=== PATIENT | male | born 1955 | race Caucasian/White ===

== ENCOUNTER 2020-12-19 05:06 | Inpatient (IN) | payer BC ==
[2020-12-19 05:47] VITALS: BMI 26.2
[2020-12-19] MEDS ORDERED: Ondansetron PF 4 MG/2 ML Vial IVP PRN (05:57)
[2020-12-19] MEDS ORDERED: Ondansetron ODT 4 MG TAB PO PRN (05:57)
[2020-12-19] MEDS ORDERED: Acetaminophen 325 MG TAB PO PRN (05:57)
[2020-12-19] MEDS ORDERED: Dextrose 5% in Water 1,000 ML IV PRN (06:11)
[2020-12-19] MEDS ORDERED: Dextrose 50% Abboject 50 ML SYRINGE SLOW IVP PRN (06:11)
[2020-12-19] MEDS ORDERED: Meclizine HCl 12.5 MG TAB PO PRN (06:32)
[2020-12-19] MEDS: Lactated Ringer's 1,000 ML IV SCH ×3 (06:34→22:33)
[2020-12-19] MEDS: HumaLOG 300 UNITS/3 ML VIAL SC PRN ×3 (06:34→16:29)
[2020-12-19] MEDS ORDERED: REMDESIVIR 200 MG in Sodium Chloride 0.9% 250 ML 210 ML IV SCH (08:00)
[2020-12-19] MEDS: Atorvastatin Calcium 40 MG TAB PO SCH (08:30)
[2020-12-19] MEDS: Dexamethasone 4 MG TAB PO SCH (08:31)
[2020-12-19] MEDS: Clopidogrel Bisulfate 75 MG TAB PO SCH (08:31)
[2020-12-19] MEDS: glyBURIDE 5 MG TAB PO SCH (08:31)
[2020-12-19] MEDS: Lisinopril 2.5 MG TAB PO SCH (08:31)
[2020-12-19] MEDS: Ezetimibe 10 MG TAB PO SCH (08:31)
[2020-12-19] MEDS: metFORMIN 500 MG TAB PO SCH ×2 (08:31→21:03)
[2020-12-19] MEDS: Enoxaparin Sodium 40 MG/0.4 ML SYRINGE SC SCH (08:31)
[2020-12-19 09:54] LABS: PTT 33.7 sec (22.9-36.1); Prothrombin Time 12.6 sec (12.0-14.7)
[2020-12-19] MEDS: Lantus 1000 UNITS/10 ML VIAL SC SCH ×2 (21:40→22:05)
[2020-12-20] MEDS: Levothyroxine Sodium 100 MCG TAB PO SCH (06:01)
[2020-12-20 06:02] LABS: Band 1 % (5-11); Hemoglobin 15.2 g/dL (14.0-18.0); Lymphocytes 29 % (21-51); MDiff Complete? YES; Mean Corpuscular HGB CONC 33.4 g/dL (32.0-36.0); Mean Corpuscular Hemoglobin 30.9 pg (27.0-31.0); Mean Corpuscular Volume 92.5 fL (78.0-98.0); Mean Platelet Volume 8.4 fL (7.4-10.4); Monocytes 8 % (0-10); Neutrophil 62 % (42-75); Platelet Count 149 thou/uL (130-400); Platelet Morphology Comment Appears Adequate; RBC Distribution Width 12.4 % (11.5-14.5); Red Blood Cell (RBC) Count 4.93 mill/uL (4.70-6.10); White Blood Cell (WBC) Count 6.9 thou/uL (4.8-10.8)
[2020-12-20 06:03] LABS: ALT (SGPT) 38 U/L (8-55); AST (SGOT) 46 U/L (5-34); Albumin 3.1 g/dL (3.4-4.8); Alkaline Phosphatase 62 U/L (40-110); Anion Gap 11 mmol/L (10-20); BUN (Urea Nitrogen) 24 mg/dL (8.4-25.7); Bilirubin, Total 0.8 mg/dL (0.2-1.2); Calc. Creatinine Clearance 104 mL/min (70-130); Calcium 8.1 mg/dL (7.8-10.44); Carbon Dioxide 25 mmol/L (23-31); Chloride 105 mmol/L (98-107); Globulin 2.9 g/dL (2.4-3.5); Glucose 128 mg/dL (80-115); Potassium 4.2 mmol/L (3.5-5.1); Sodium 137 mmol/L (136-145)
[2020-12-20] MEDS: Lactated Ringer's 1,000 ML IV SCH (06:13)
[2020-12-20] MEDS: Clopidogrel Bisulfate 75 MG TAB PO SCH (08:04)
[2020-12-20] MEDS: Dexamethasone 4 MG TAB PO SCH (08:04)
[2020-12-20] MEDS: metFORMIN 500 MG TAB PO SCH ×2 (08:04→21:32)
[2020-12-20] MEDS: glyBURIDE 5 MG TAB PO SCH (08:04)
[2020-12-20] MEDS: Atorvastatin Calcium 40 MG TAB PO SCH (08:04)
[2020-12-20] MEDS: Lisinopril 2.5 MG TAB PO SCH (08:05)
[2020-12-20] MEDS: Ezetimibe 10 MG TAB PO SCH (08:05)
[2020-12-20] MEDS: Enoxaparin Sodium 40 MG/0.4 ML SYRINGE SC SCH (08:08)
[2020-12-20] MEDS: REMDESIVIR 100 MG in Sodium Chloride 0.9% 250 ML 230 ML IV SCH (08:39)
[2020-12-20] MEDS: HumaLOG 300 UNITS/3 ML VIAL SC PRN (17:00)
[2020-12-20] MEDS: Lantus 1000 UNITS/10 ML VIAL SC SCH (21:31)
[2020-12-21] MEDS: Levothyroxine Sodium 100 MCG TAB PO SCH (05:29)
[2020-12-21 05:55] LABS: #Lymphocytes 1.7 thou/uL (1.20-3.40); #Monocytes 1.1 thou/uL (0.11-0.59); #Neutrophils 5.8 thou/uL (1.40-6.50); %Eosinophils 0.3 % (0.0-10.0); %Lymphocytes 19.4 % (21.0-51.0); %Monocytes 12.5 % (0.0-10.0); %Neutrophils 67.8 % (42.0-75.0); Hemoglobin 15.1 g/dL (14.0-18.0); Mean Corpuscular HGB CONC 32.7 g/dL (32.0-36.0); Mean Corpuscular Hemoglobin 30.1 pg (27.0-31.0); Mean Corpuscular Volume 92.1 fL (78.0-98.0); Mean Platelet Volume 8.2 fL (7.4-10.4); Platelet Count 180 thou/uL (130-400); RBC Distribution Width 12.3 % (11.5-14.5); Red Blood Cell (RBC) Count 5.02 mill/uL (4.70-6.10); White Blood Cell (WBC) Count 8.6 thou/uL (4.8-10.8)
[2020-12-21 06:18] LABS: ALT (SGPT) 40 U/L (8-55); AST (SGOT) 47 U/L (5-34); Alkaline Phosphatase 61 U/L (40-110); Anion Gap 12 mmol/L (10-20); BUN (Urea Nitrogen) 25 mg/dL (8.4-25.7); Bilirubin, Total 0.9 mg/dL (0.2-1.2); Calc. Creatinine Clearance 110 mL/min (70-130); Calcium 8.4 mg/dL (7.8-10.44); Carbon Dioxide 25 mmol/L (23-31); Chloride 107 mmol/L (98-107); Globulin 3.1 g/dL (2.4-3.5); Glucose 83 mg/dL (80-115); Potassium 5.3 mmol/L (3.5-5.1); Protein, Total 6.1 g/dL (5.8-8.1); Sodium 139 mmol/L (136-145)
[2020-12-21] MEDS: Lisinopril 2.5 MG TAB PO SCH (07:57)
[2020-12-21] MEDS: Dexamethasone 4 MG TAB PO SCH (07:57)
[2020-12-21] MEDS: metFORMIN 500 MG TAB PO SCH ×2 (07:58→20:18)
[2020-12-21] MEDS: Atorvastatin Calcium 40 MG TAB PO SCH (07:58)
[2020-12-21] MEDS: glyBURIDE 5 MG TAB PO SCH (07:58)
[2020-12-21] MEDS: Clopidogrel Bisulfate 75 MG TAB PO SCH (07:58)
[2020-12-21] MEDS: Ezetimibe 10 MG TAB PO SCH (07:58)
[2020-12-21] MEDS: Enoxaparin Sodium 40 MG/0.4 ML SYRINGE SC SCH (07:59)
[2020-12-21] MEDS: REMDESIVIR 100 MG in Sodium Chloride 0.9% 250 ML 230 ML IV SCH (08:59)
[2020-12-21] MEDS ORDERED: Benzonatate 100 MG CAP PO SCH (09:00)
[2020-12-21] MEDS: guaiFENesin/DM ER PO SCH ×2 (10:00→20:18)
[2020-12-21 15:28] LABS: Potassium 4.2 mmol/L (3.5-5.1)
[2020-12-21] MEDS: HumaLOG 300 UNITS/3 ML VIAL SC PRN (16:33)
[2020-12-21] MEDS: Lantus 1000 UNITS/10 ML VIAL SC SCH (20:21)
[2020-12-22] MEDS: Levothyroxine Sodium 100 MCG TAB PO SCH (05:15)
[2020-12-22 07:07] LABS: ALT (SGPT) 43 U/L (8-55); AST (SGOT) 50 U/L (5-34); Albumin 3.1 g/dL (3.4-4.8); Alkaline Phosphatase 67 U/L (40-110); Anion Gap 9 mmol/L (10-20); BUN (Urea Nitrogen) 22 mg/dL (8.4-25.7); Bilirubin, Total 1.1 mg/dL (0.2-1.2); Calc. Creatinine Clearance 119 mL/min (70-130); Calcium 8.2 mg/dL (7.8-10.44); Carbon Dioxide 27 mmol/L (23-31); Chloride 105 mmol/L (98-107); Globulin 3.2 g/dL (2.4-3.5); Glucose 78 mg/dL (80-115); Potassium 4.3 mmol/L (3.5-5.1); Protein, Total 6.3 g/dL (5.8-8.1); Sodium 137 mmol/L (136-145)
[2020-12-22 07:08] LABS: #Lymphocytes 1.4 thou/uL (1.20-3.40); %Basophils 0.1 % (0.0-1.0); %Eosinophils 0.2 % (0.0-10.0); %Lymphocytes 15.1 % (21.0-51.0); %Neutrophils 74.5 % (42.0-75.0); Hemoglobin 15.8 g/dL (14.0-18.0); Mean Corpuscular HGB CONC 34.4 g/dL (32.0-36.0); Mean Platelet Volume 7.8 fL (7.4-10.4); Platelet Count 177 thou/uL (130-400); RBC Distribution Width 12.4 % (11.5-14.5); Red Blood Cell (RBC) Count 4.95 mill/uL (4.70-6.10); White Blood Cell (WBC) Count 9.4 thou/uL (4.8-10.8)
[2020-12-22] MEDS: Lisinopril 2.5 MG TAB PO SCH (08:13)
[2020-12-22] MEDS: Atorvastatin Calcium 40 MG TAB PO SCH (08:13)
[2020-12-22] MEDS: Ezetimibe 10 MG TAB PO SCH (08:13)
[2020-12-22] MEDS: Dexamethasone 4 MG TAB PO SCH (08:14)
[2020-12-22] MEDS: Clopidogrel Bisulfate 75 MG TAB PO SCH (08:14)
[2020-12-22] MEDS: glyBURIDE 5 MG TAB PO SCH (08:14)
[2020-12-22] MEDS: metFORMIN 500 MG TAB PO SCH ×2 (08:14→21:13)
[2020-12-22] MEDS: guaiFENesin/DM ER PO SCH ×2 (08:15→21:13)
[2020-12-22] MEDS: Enoxaparin Sodium 40 MG/0.4 ML SYRINGE SC SCH (08:15)
[2020-12-22] MEDS: REMDESIVIR 100 MG in Sodium Chloride 0.9% 250 ML 230 ML IV SCH (08:18)
[2020-12-22] MEDS ORDERED: Bisacodyl 5 MG TAB PO PRN (08:29)
[2020-12-22] MEDS ORDERED: Senokot S 8.6-50 MG TAB PO SCH (09:00)
[2020-12-22] MEDS ORDERED: Polyethylene Glycol 3350 17 GM Packet PO SCH (09:00)
[2020-12-22] MEDS: Lantus 1000 UNITS/10 ML VIAL SC SCH (21:12)
[2020-12-23] MEDS: Levothyroxine Sodium 100 MCG TAB PO SCH (05:27)
[2020-12-23 06:58] LABS: #Basophils 0.1 thou/uL (0.0-0.2); #Eosinphils 0.1 thou/uL (0.0-0.7); #Lymphocytes 1.3 thou/uL (1.20-3.40); #Monocytes 0.9 thou/uL (0.11-0.59); #Neutrophils 6.1 thou/uL (1.40-6.50); %Basophils 0.9 % (0.0-1.0); %Eosinophils 0.6 % (0.0-10.0); %Lymphocytes 15.4 % (21.0-51.0); %Monocytes 11.1 % (0.0-10.0); %Neutrophils 72.1 % (42.0-75.0); Hemoglobin 15.8 g/dL (14.0-18.0); Mean Corpuscular Hemoglobin 30.5 pg (27.0-31.0); Mean Corpuscular Volume 92.4 fL (78.0-98.0); Mean Platelet Volume 7.6 fL (7.4-10.4); Platelet Count 212 thou/uL (130-400); RBC Distribution Width 12.3 % (11.5-14.5); Red Blood Cell (RBC) Count 5.19 mill/uL (4.70-6.10); White Blood Cell (WBC) Count 8.5 thou/uL (4.8-10.8)
[2020-12-23 07:19] LABS: ALT (SGPT) 41 U/L (8-55); AST (SGOT) 48 U/L (5-34); Albumin 3.1 g/dL (3.4-4.8); Alkaline Phosphatase 77 U/L (40-110); Anion Gap 10 mmol/L (10-20); BUN (Urea Nitrogen) 15 mg/dL (8.4-25.7); Bilirubin, Total 1.4 mg/dL (0.2-1.2); Calc. Creatinine Clearance 117 mL/min (70-130); Calcium 8.2 mg/dL (7.8-10.44); Carbon Dioxide 27 mmol/L (23-31); Chloride 103 mmol/L (98-107); Globulin 3.2 g/dL (2.4-3.5); Glucose 90 mg/dL (80-115); Potassium 4.1 mmol/L (3.5-5.1); Protein, Total 6.3 g/dL (5.8-8.1); Sodium 136 mmol/L (136-145)
[2020-12-23 07:45] VITALS: BP 143/80; TEMP 97.6
[2020-12-23] MEDS ORDERED: Aspirin 81 mg Enteric Coated Tablet PO SCH (09:00)
[2020-12-23] MEDS: REMDESIVIR 100 MG in Sodium Chloride 0.9% 250 ML 230 ML IV SCH (09:07)
[2020-12-23] MEDS: metFORMIN 500 MG TAB PO SCH (09:08)
[2020-12-23] MEDS: Atorvastatin Calcium 40 MG TAB PO SCH (09:08)
[2020-12-23] MEDS: Clopidogrel Bisulfate 75 MG TAB PO SCH (09:08)
[2020-12-23] MEDS: Enoxaparin Sodium 40 MG/0.4 ML SYRINGE SC SCH (09:08)
[2020-12-23] MEDS: Lisinopril 2.5 MG TAB PO SCH (09:08)
[2020-12-23] MEDS: Ezetimibe 10 MG TAB PO SCH (09:08)
[2020-12-23] MEDS: Dexamethasone 4 MG TAB PO SCH (09:09)
[2020-12-23] MEDS: guaiFENesin/DM ER PO SCH (09:09)
[2020-12-23] MEDS: glyBURIDE 5 MG TAB PO SCH (09:09)
[2020-12-23] MEDS: HumaLOG 300 UNITS/3 ML VIAL SC PRN (11:43)
== END 2020-12-23 16:22 | disposition home or self-care (01) | DRG 177 ==
LOC: T4-B 05:42 → OBSVTOIN 15:38
PROVIDERS: ADMIT Student in an Organized Health Care Education/Training Program; ATTEND Student in an Organized Health Care Education/Training Program
PROC: 8E0ZXY6 Isolation (ICD-10-PCS; principal; 2020-12-19)
PROC: XW033E5 Introduction of Remdesivir Anti-infective into Peripheral Vein, Percutaneous Approach, New Technology Group 5 (ICD-10-PCS; 2020-12-19)
DX: U07.1 COVID-19 (principal); J96.01 Acute respiratory failure with hypoxia; J12.82 Pneumonia due to coronavirus disease 2019; E03.9 Hypothyroidism, unspecified; E78.5 Hyperlipidemia, unspecified; I25.10 Atherosclerotic heart disease of native coronary artery without angina pectoris; E11.65 Type 2 diabetes mellitus with hyperglycemia; I10 Essential (primary) hypertension; E87.5 Hyperkalemia; Z79.4 Long term (current) use of insulin; Z79.899 Other long term (current) drug therapy; Z79.890 Hormone replacement therapy; Z95.5 Presence of coronary angioplasty implant and graft; Z90.49 Acquired absence of other specified parts of digestive tract; Z82.49 Family history of ischemic heart disease and other diseases of the circulatory system; Z85.038 Personal history of other malignant neoplasm of large intestine
CPT/HCPCS: 36415; 36416; 71045; 80053; 83880; 84145; 85025; 85610; 85730; 86140; 93005; 93010; 96365; 96372; G0378; J1650; J1815; J2405; J7050; J8540

== ENCOUNTER 2021-01-15 17:49 | Inpatient (IN) | payer BC ==
[~2021-01-15 17:49] MED LIST: Iopamidol-370 76% 500 ML 1 ML ONE
[2021-01-15 18:39] LABS: #Basophils 0.1 thou/uL (0.0-0.2); #Eosinphils 0.2 thou/uL (0.0-0.7); #Lymphocytes 4.1 thou/uL (1.20-3.40); #Monocytes 1.4 thou/uL (0.11-0.59); #Neutrophils 7.6 thou/uL (1.40-6.50); %Basophils 0.9 % (0.0-1.0); %Eosinophils 1.8 % (0.0-10.0); %Lymphocytes 30.9 % (21.0-51.0); %Monocytes 10.2 % (0.0-10.0); %Neutrophils 56.3 % (42.0-75.0); Hemoglobin 15.6 g/dL (14.0-18.0); Mean Corpuscular HGB CONC 34.7 g/dL (32.0-36.0); Mean Corpuscular Hemoglobin 31.8 pg (27.0-31.0); Mean Corpuscular Volume 91.8 fL (78.0-98.0); Mean Platelet Volume 7.4 fL (7.4-10.4); Platelet Count 259 thou/uL (130-400); RBC Distribution Width 12.6 % (11.5-14.5); Red Blood Cell (RBC) Count 4.91 mill/uL (4.70-6.10); White Blood Cell (WBC) Count 13.4 thou/uL (4.8-10.8)
[2021-01-15 19:04] LABS: ALT (SGPT) 56 U/L (8-55); AST (SGOT) 28 U/L (5-34); Alkaline Phosphatase 87 U/L (40-110); Anion Gap 17 mmol/L (10-20); BUN (Urea Nitrogen) 19 mg/dL (8.4-25.7); Bilirubin, Total 1.5 mg/dL (0.2-1.2); Calc. Creatinine Clearance 0 mL/min (70-130); Calcium 10.1 mg/dL (7.8-10.44); Carbon Dioxide 25 mmol/L (23-31); Chloride 104 mmol/L (98-107); Globulin 3.3 g/dL (2.4-3.5); Glucose 190 mg/dL (80-115); Lipase 75 U/L (8-78); Potassium 4.6 mmol/L (3.5-5.1); Protein, Total 7.3 g/dL (5.8-8.1); Sodium 141 mmol/L (136-145)
[2021-01-15] MEDS ORDERED: Cefepime 2 GM VIAL ONE (19:53)
[2021-01-15] MEDS ORDERED: Vancomycin 1.5 GRAM/300 ML BAG 1.5 GM in Premix Bag 1 BAG IVPB SCH (20:45)
[2021-01-15 22:27] LABS: Bilirubin Negative (Negative); Blood, Urine Negative (Negative); Clarity Clear (Clear); Glucose, Urine (Dipstick) 500 mg/dL (Negative); Ketone, Urine Negative (Negative); Leukocyte 75 Leu/uL (Negative); Mucous/LPF Rare LPF (<2+); Nitrite Negative (Negative); Protein, Urine (Dipstick) 30 mg/dL (Neg-Trace); Squamous Epithelial 0-3 HPF (0-3); Urobilinogen Normal mg/dL (Less than 2); WBC/HPF 21-50 HPF (0-3)
[2021-01-15 22:35] LABS: RBC/HPF 0-3 HPF (0-3); Specific Gravity, Urine 1.056 (1.002-1.036)
[2021-01-15 22:36] LABS: Bacteria/HPF None Seen HPF (None Seen); Calcium Oxalate Crystals 1+ HPF (None Seen)
[2021-01-15 23:04] LABS: Lactic Acid 2.1 mmol/L (0.5-2.2)
[2021-01-15] MEDS ORDERED: Benzonatate 100 MG CAP PO PRN (23:32)
[2021-01-15] MEDS ORDERED: Meclizine HCl 12.5 MG TAB PO PRN (23:39)
[2021-01-15] MEDS ORDERED: Dextrose 5% in Water 1,000 ML IV PRN (23:40)
[2021-01-15] MEDS ORDERED: Dextrose 50% Abboject 50 ML SYRINGE SLOW IVP PRN (23:40)
[2021-01-15] MEDS ORDERED: HumaLOG 300 UNITS/3 ML VIAL SC PRN ×2 (23:40)
[2021-01-15 23:42] LABS: Troponin I Less than 0.010 ng/mL (< 0.028)
[2021-01-15] MEDS ORDERED: Lactated Ringer's 1,000 ML IV SCH (23:45)
[2021-01-16 01:50] LABS: Troponin I Less than 0.010 ng/mL (< 0.028)
[2021-01-16 02:21] VITALS: BMI 25.8
[2021-01-16] MEDS ORDERED: Cefepime 2 GM in Sodium Chloride 0.9% 100 ML IVPB SCH (04:00)
[2021-01-16 05:12] LABS: #Eosinphils 0.3 thou/uL (0.0-0.7); #Monocytes 1.1 thou/uL (0.11-0.59); %Basophils 0.4 % (0.0-1.0); %Lymphocytes 28.6 % (21.0-51.0); %Monocytes 10.3 % (0.0-10.0); %Neutrophils 57.7 % (42.0-75.0); Hemoglobin 12.5 g/dL (14.0-18.0); Mean Corpuscular HGB CONC 33.5 g/dL (32.0-36.0); Mean Corpuscular Hemoglobin 30.9 pg (27.0-31.0); Mean Corpuscular Volume 92.2 fL (78.0-98.0); Mean Platelet Volume 7.6 fL (7.4-10.4); Platelet Count 216 thou/uL (130-400); RBC Distribution Width 12.5 % (11.5-14.5); Red Blood Cell (RBC) Count 4.05 mill/uL (4.70-6.10); White Blood Cell (WBC) Count 10.3 thou/uL (4.8-10.8)
[2021-01-16 05:19] LABS: ALT (SGPT) 42 U/L (8-55); AST (SGOT) 18 U/L (5-34); Albumin 3.2 g/dL (3.4-4.8); Alkaline Phosphatase 69 U/L (40-110); Anion Gap 13 mmol/L (10-20); BUN (Urea Nitrogen) 17 mg/dL (8.4-25.7); Bilirubin, Total 1.6 mg/dL (0.2-1.2); Calc. Creatinine Clearance 120 mL/min (70-130); Calcium 8.3 mg/dL (7.8-10.44); Carbon Dioxide 21 mmol/L (23-31); Chloride 108 mmol/L (98-107); Globulin 2.5 g/dL (2.4-3.5); Glucose 157 mg/dL (80-115); Potassium 3.9 mmol/L (3.5-5.1); Protein, Total 5.7 g/dL (5.8-8.1); Sodium 138 mmol/L (136-145)
[2021-01-16] MEDS: Levothyroxine Sodium 100 MCG TAB PO SCH (05:45)
[2021-01-16 08:05] LABS: Hemoglobin A1c 10.9 % (4.0-6.0)
[2021-01-16 08:37] LABS: Legionella Urinary Ag Negative (Negative); Strep pneumo Urine Ag NEGATIVE (NEGATIVE)
[2021-01-16] MEDS ORDERED: VANCOMYCIN 1.25 GM/250 ML BAG 1.25 GM in Premix Bag 1 BAG IVPB SCH (09:00)
[2021-01-16] MEDS ORDERED: glyBURIDE 5 MG TAB PO SCH (09:00)
[2021-01-16] MEDS: Enoxaparin Sodium 40 MG/0.4 ML SYRINGE SC SCH (09:08)
[2021-01-16] MEDS: Lisinopril 2.5 MG TAB PO SCH (09:08)
[2021-01-16] MEDS: Aspirin 81 mg Enteric Coated Tablet PO SCH (09:08)
[2021-01-16] MEDS: metFORMIN 500 MG TAB PO SCH ×2 (09:08→20:03)
[2021-01-16] MEDS: Clopidogrel Bisulfate 75 MG TAB PO SCH (09:08)
[2021-01-16] MEDS: Ezetimibe 10 MG TAB PO SCH (09:08)
[2021-01-16] MEDS: guaiFENesin/DM ER PO SCH ×2 (09:08→20:04)
[2021-01-16] MEDS: Atorvastatin Calcium 40 MG TAB PO SCH (09:08)
[2021-01-16] MEDS ORDERED: Lantus 1000 UNITS/10 ML VIAL SC SCH (21:00)
[2021-01-17] MEDS: Levothyroxine Sodium 100 MCG TAB PO SCH (05:45)
[2021-01-17 07:55] VITALS: BP 124/79; TEMP 97.6
[2021-01-17] MEDS: Clopidogrel Bisulfate 75 MG TAB PO SCH (09:54)
[2021-01-17] MEDS: Ezetimibe 10 MG TAB PO SCH (09:54)
[2021-01-17] MEDS: Aspirin 81 mg Enteric Coated Tablet PO SCH (09:54)
[2021-01-17] MEDS: Lisinopril 2.5 MG TAB PO SCH (09:54)
[2021-01-17] MEDS: Atorvastatin Calcium 40 MG TAB PO SCH (09:54)
[2021-01-17] MEDS: Enoxaparin Sodium 40 MG/0.4 ML SYRINGE SC SCH (09:55)
[2021-01-17] MEDS: guaiFENesin/DM ER PO SCH (09:55)
[2021-01-17] MEDS: metFORMIN 500 MG TAB PO SCH (09:55)
== END 2021-01-17 12:15 | disposition home or self-care (01) | DRG 198 ==
LOC: ERS 17:49 → 2NO 23:07
PROVIDERS: ADMIT Student in an Organized Health Care Education/Training Program; ATTEND Student in an Organized Health Care Education/Training Program
DX: J84.10 Pulmonary fibrosis, unspecified (principal); E03.9 Hypothyroidism, unspecified; I95.9 Hypotension, unspecified; R82.71 Bacteriuria; I25.10 Atherosclerotic heart disease of native coronary artery without angina pectoris; E11.9 Type 2 diabetes mellitus without complications; F17.220 Nicotine dependence, chewing tobacco, uncomplicated; I10 Essential (primary) hypertension; Z79.01 Long term (current) use of anticoagulants; Z79.82 Long term (current) use of aspirin; Z79.4 Long term (current) use of insulin; Z79.899 Other long term (current) drug therapy; Z82.49 Family history of ischemic heart disease and other diseases of the circulatory system; Z80.9 Family history of malignant neoplasm, unspecified; Z85.038 Personal history of other malignant neoplasm of large intestine; Z90.49 Acquired absence of other specified parts of digestive tract; Z95.5 Presence of coronary angioplasty implant and graft; B94.8 Sequelae of other specified infectious and parasitic diseases; Z86.16 Personal history of COVID-19; E86.0 Dehydration
CPT/HCPCS: 36415; 36416; 70450; 71045; 71275; 80053; 81003; 81015; 83036; 83605; 83690; 84145; 84484; 85025; 87040; 87086; 87449; 87633; 87804; 87899; 90471; 90732; 93005; 96365; 96366; 96375; G0009; J0692; J1650; J3370; J3490; J7120; Q9967